=== PATIENT | female | born 1980 | race Caucasian/White ===

== ENCOUNTER 2024-08-25 13:35 | Outpatient (AMB) | payer OTHER, SELFPAY ==
--- NOTE | 2024-08-25 13:40 | A.OFFVIS_ITS ---
Vital Signs 08/25/24 13:46 Height 5 ft 6.5 in Weight 140 lb 8 oz BMI 22.3 BP 121/74 Blood Pressure Location Lt brachial Position Sitting Pulse 71 Pulse Source Pulse Oximeter Intake Visit Reasons: Scoliosis unspecified Intake Note: Pain today 02/04 Residential Real Estate Assistant Required: No Accompanied by: Spouse Allergies amphetamine [From Adderall] Allergy (Unknown, Verified 08/25/24 13:46) Rash dextroamphetamine [From Adderall] Allergy (Unknown, Verified 08/25/24 13:46) Rash Medication List - Last Reconciled 08/25/24 by MARY BETH Chávez albuterol sulfate 90 mcg/actuation inhalation bupropion HCl XL mg PO DAILY cyclobenzaprine 5 mg PO BEDTIME ferrous gluconate 324 mg PO DAILY ibuprofen 600 mg PO TID multivitamin 1 tab PO DAILY HPI HPI Scoliosis unspecified: Details: Patient is a pleasant 44 years old female with history of thoracolumbar fusion with rods for scoliosis (1993), chronic neck and low back pain, migraine headaches, lumbar arthritis, chronic fatigue, ADD, depression and insomnia, presents today for initial evaluation for chronic neck pain and back pain with left sided radiculopathy. Denies any recent trauma, injury or falls. Reports chronic pain for many years which has been resistant more recently to regular massage therapy, PT, chiropractic adjustments, epidural steroid injections, topical applications, heat, muscle relaxants and NSAIDs with continued symptoms. Most recent PT was completed in September 2023 with minimal improvement in functio alex and pain reduction. Most recent spine imaging were completed prior to 2011 in [place] and back surgery for scoliosis at age 13 in [place], [place]. Back pain is axial and also radiates to left lower extremity, predominately in L5 distribution with associated numbness and tingling, burning and aching sensations. She also experiences bilateral hip pain with prolonged standing or walking. Pain affects her daily activities, functioning, mobility, sleeping, social life, traveling and quality of life. Denies any fever or chills, abdominal or groin pain, weakness, foot drop, bladder or bowel dysfunction or saddle anesthesia. She sees Mental Therapist, Eleni Pritchett. Oswestry Low Back Disability Index Score=24 (moderate disability) Location: Upper back radiates down to left leg, neck pain Duration: Chronic pain for many years Characteristics of symptom or complaint: Aching, throbbing, shooting, sharp, pinching, tingling, tight, radiating Aggravating or associated factors: Prolonged sitting or standing, walking, movements, ROM, ADLs, cold Relieving factors: Ibuprofen, flexiril, heat therapy, rest, activity modifications Treatment: PT September 2023, back surgery age 13, lumbar JOSSY 2005, massage, chiropractic [facility] Medical History (Updated 08/25/24 @ 14:22 by MARY BETH Chávez) Neck pain Attention and concentration deficit Depressive disorder Recurrent major depression Insomnia Idiopathic scoliosis and kyphoscoliosis Acne Migraine with aura Major depression, single episode Surgical History (Updated 08/25/24 @ 14:16 by MARY BETH Chávez) History of spinal fusion for scoliosis Social History Alcohol intake: current Alcohol intake frequency: a few times a week Patient Tobacco Use Status: Never used Tobacco Current occupational status: employed Current occupation: Team [employer] Review of Systems Const All systems reviewed & are unremarkable except as noted in HPI and below Physical Exam General: Appears afebrile. Alert and oriented. Mood and affect appropriate. Follows and participates in conversation appropriately. Respiratory effort is unlabored. No cough. Able to transition from sit to stand unassisted. Ambulates with bilaterally normal heel strike and toe off. General: Yes no CVA tenderness Back/Spine/Pelvis Other: Patient is able to walk and stand on heels and tip toes with no difficulties demonstrating good motor tone. No limping. Can flex forward to 75-80 degrees and limited extension due to rods in her spine, with moderate pain with flexion and extension. Demonstrates 5/5 strength of quadriceps bilaterally as well as flexion/dorsiflexion of bilateral feet against resistance. 2+ pedal pulses bilaterally. Straight leg rise with dorsiflexion is diffuse positive on the left, negative on the right. +2 patellar and achilles reflexes bilaterally. Facet loading test positive bilaterally. Eladio sign, Brent?s, and Stinchfield tests are negative bilaterally. No groin pain with I/E hip rotations. Valsalva maneuver is negative. Back: no CVA tenderness Cervical Spine: cervical ROM normal, cervical muscular tenderness, pain with cervical ROM, No Cervical spine scars present, No cervical spasm, No Cervical spine tenderness and No step off deformity Thoracic/Lumbar Spine: thoracic and lumbar spine normal to inspection, Thoracic/lumbar spine scar(s), kyphosis, Lasegue's sign positive on the left and diffuse, pain with thoraco-lumbar ROM, paraspinal muscle tenderness, thoraco- lumbar ROM limited, Thoracic/lumbar scoliosis, No thoracic spinal tenderness and lumbar spinal tenderness (L4-S1) Pelvis: no buttock tenderness Sacroiliac joints: bilaterally nontender Extrem General: Yes capillary refill normal, Yes no clubbing, cyanosis or edema and Yes no calf tenderness Assessment & Plan Assessment & Plan (1) Idiopathic scoliosis and kyphoscoliosis: Code(s): M41.20 - Other idiopathic scoliosis, site unspecified Category: Medical (2) Lumbar degenerative disc disease: Code(s): M51.369 - Other intervertebral disc degeneration, lumbar region without mention of lumbar back pain or lower extremity pain Category: Medical (3) Chronic low back pain: Code(s): M54.50 - Low back pain, unspecified; G89.29 - Other chronic pain Category: Medical (4) Lumbar radiculopathy: Code(s): M54.16 - Radiculopathy, lumbar region Category: Medical (5) Neck pain: Code(s): M54.2 - Cervicalgia Category: Medical (6) Idiopathic scoliosis and kyphoscoliosis: Code(s): M41.20 - Other idiopathic scoliosis, site unspecified Category: Medical (7) Chronic low back pain: Code(s): M54.50 - Low back pain, unspecified; G89.29 - Other chronic pain Category: Medical (8) History of spinal fusion for scoliosis: Code(s): Z98.1 - Arthrodesis status; Z87.39 - Personal history of other diseases of the musculoskeletal system and connective tissue Category: Surgical (9) Muscle spasm: Code(s): M62.838 - Other muscle spasm Category: Medical Plan Discussed interventional and medical treatments for chronic neck and low back with prior surgery for scoliosis, with left sided radiculopathy, including neuromodulation Sprint PNS trial, SCS trial and implant, RFA procedures, diagno stic vs therapeutic injections. We will proceed with obtaining spine imaging to assess degree of degenerative changes, any subluxation, listhesis, compression fractures or pars defects and lumbar MRI to assess for neural integrity and compression and hardware status. Back pain has been functioning limiting and resistant to conservative treatment. Patient will return to the clinic to discuss results of the MRI findings when it is done and consider interventional therapy as indicated. Scripts provided for lidocaine patches and methocarbamol. Patient will hold flexeril. Side effects and precautions were discussed with patient. All questions and concerns have been answered and patient agreed with the treatment plan. Follow up for xray/MRI results and sooner as needed. Orders: Orders XR lumbar spine 4V min Today G89.29 - Other chronic pain, M41.20 - Other idiopathic scoliosis, site unspecified, M54.50 - Low back pain, unspecified, Z87.39 - Personal history of other diseases of the musculoskeletal system and connective tissue, Z98.1 - Arthrodesis status XR thoracic spine 2V Today G89.29 - Other chronic pain, M41.20 - Other idiopathic scoliosis, site unspecified, M54.50 - Low back pain, unspecified, Z87.39 - Personal history of other diseases of the musculoskeletal system and connective tissue, Z98.1 - Arthrodesis status MR lumbar spine wo con Today G89.29 - Other chronic pain, M41.20 - Other idiopathic scoliosis, site unspecified, M51.369 - Other intervertebral disc degeneration, lumbar region without mention of lumbar back pain or lower extremity pain, M54.16 - Radiculopathy, lumbar region, M54.50 - Low back pain, unspecified XR cervical spine 4V Today M54.2 - Cervicalgia Medications: New lidocaine 5% leave on most painful area for up to 12 hrs topically daily; 30 days 30 ea 2RF pain G89.29 - Other chronic pain, M51.369 - Other intervertebral disc degeneration, lumbar region without mention of lumbar back pain or lower extremity pain, M54.50 - Low back pain, unspecified methocarbamol 750 mg PO BEDTIME 30 days PRN 30 tabs 0RF muscle spasms G89.29 - Other chronic pain, M51.369 - Other intervertebral disc degeneration, lumbar region without mention of lumbar back pain or lower extremity pain, M54.50 - Low back pain, unspecified, M62.838 - Other muscle spasm Coding Level of Care Code New Pt Level 4 (01406) Diagnoses Idiopathic scoliosis and kyphoscoliosis M41.20 Lumbar degenerative disc disease M51.369 Chronic low back pain M54.50; G89.29 Lumbar radiculopathy M54.16 Neck pain M54.2 History of spinal fusion for scoliosis Z98.1; Z87.39 Muscle spasm M62.838
[2024-08-25 13:46] VITALS: BP 121/74; PULSE 71; BMI 22.3
== END 2024-08-25 14:24 | disposition home or self-care (01) ==
PROVIDERS: PCP Family Medicine; Referring Provider Family Medicine; Visit Provider Nurse Practitioner Family
DX: M41.20 Other idiopathic scoliosis, site unspecified (principal); M51.369 Other intervertebral disc degeneration, lumbar region without mention of lumbar back pain or lower extremity pain; M54.50 Low back pain, unspecified; G89.29 Other chronic pain; M54.16 Radiculopathy, lumbar region; M54.2 Cervicalgia; Z98.1 Arthrodesis status; Z87.39 Personal history of other diseases of the musculoskeletal system and connective tissue; M62.838 Other muscle spasm
CPT/HCPCS: 99204

== ENCOUNTER 2024-08-25 13:35 | Outpatient (REF) | payer OTHER, SELFPAY ==
--- NOTE | ~2024-08-25 | XR_ITS ---
CLINICAL HISTORY: M41.20 - Other idiopathic scoliosis, site unspecified 4 views thoracic spine Comparison: None Findings: Normal alignment. Spinal stabilization hardware is present. No acute fractures or dislocation. No significant degenerative change. IMPRESSION: No acute findings. This document has been electronically signed by: Roberto White MD on 08/26/2024 16:30:14
--- NOTE | ~2024-08-25 | XR_ITS ---
CLINICAL HISTORY: M54.50 - Low back pain, unspecified 6 views lumbar spine Comparison: None Findings: Thoracolumbar spinal stabilization hardware is present. Loss of normal lumbar lordosis. No acute fractures or dislocation. Multilevel disc space narrowing and endplate osteophyte formation, as well as facet hypertrophy. IMPRESSION: No acute findings. This document has been electronically signed by: Roberto White MD on 08/26/2024 16:32:16
--- NOTE | ~2024-08-25 | XR_ITS ---
CLINICAL HISTORY: M54.2 - Cervicalgia 5 views cervical spine Comparison: None Findings: Normal alignment. No acute fractures or dislocation. Disc space narrowing and endplate osteophyte formation at C5-C6, indicating degenerative disc disease. No prevertebral soft tissue swelling. IMPRESSION: 1. No acute findings. 2. Degenerative disc disease at C5-C6. This document has been electronically signed by: Roberto White MD on 08/26/2024 16:30:01
== END 2024-08-25 13:36 | disposition home or self-care (01) ==
LOC: HO.XRAY 13:35
PROVIDERS: PCP Family Medicine; Referring Provider Family Medicine; Visit Provider Nurse Practitioner Family
DX: G89.29 Other chronic pain (principal); M54.50 Low back pain, unspecified; M41.20 Other idiopathic scoliosis, site unspecified; Z98.1 Arthrodesis status; Z87.39 Personal history of other diseases of the musculoskeletal system and connective tissue; M54.2 Cervicalgia
CPT/HCPCS: 72050; 72070; 72110

== ENCOUNTER → 2024-08-25 14:32 | Outpatient (BNV) | payer OTHER, SELFPAY | PROVIDERS: PCP Family Medicine; Referring Provider Family Medicine; Visit Provider Radiology Diagnostic Radiology | DX: M50.322 Other cervical disc degeneration at C5-C6 level (principal); M54.50 Low back pain, unspecified; M41.20 Other idiopathic scoliosis, site unspecified | CPT/HCPCS: 72050; 72070; 72110 ==

== ENCOUNTER 2024-09-23 09:52 | Outpatient (REF) | payer OTHER, SELFPAY ==
--- NOTE | ~2024-09-23 | MR_ITS ---
EXAMINATION: MR LUMBAR SPINE WITHOUT CONTRAST CLINICAL INFORMATION: Idiopathic scoliosis. COMPARISON: Correlated to x-ray dated August 17, 2024. TECHNIQUE: MRI of the lumbar spine was obtained using routine sequences without contrast. FINDINGS: Limited examination due to paramagnetic field distortion secondary to the metallic hardware in the posterior elements of the thoracolumbar spine. Last rib-bearing vertebra labeled T12. The conus medullaris ends at pedicle of T12 with normal signal. The neural elements of the filum terminalis cauda equina demonstrated no grouping or clumping or empty thecal sac sign. There is a grade 1 retrolisthesis L4-5. There is no bone marrow STIR signal abnormality. T12-L1: No gross central spinal canal stenosis or neuroforamina stenosis. L1-2: No gross central spinal canal or neuroforamina stenosis. L2-3: Broad-based disc bulging. No gross neuroforamina stenosis. Limited evaluation. L3-4: Broad-based disc bulging. Limited evaluation due to postsurgical changes. No gross neuroforamina stenosis. L4-5: Broad-based disc bulging and facet joint hypertrophy. Bilateral neuroforamina stenosis left greater than the right likely encroaching posterior compressing the exiting nerve roots. L5-S1: Broad-based disc bulging. Central spinal canal stenosis and bilateral neuroforamina narrowing likely encroaching the neural elements. No gross prevertebral compartment hematoma mass or fluid collection. Fatty atrophy of the lower lumbar muscles.. MR/MR lumbar spine wo con IMPRESSION: Limited examination secondary to metallic hardware, nevertheless there is spondylosis resulting in grade 1 retrolisthesis L4-5 likely compressing the exiting nerve roots. Spondylosis at L5-S1 likely encroaching the neural elements. No tethered cord. Electronically signed by: Rory Anand MD 09/23/2024 11:24 AM EST
== END 2024-09-23 09:53 | disposition home or self-care (01) ==
LOC: HO.MRI 09:52
PROVIDERS: PCP Family Medicine; Visit Provider Nurse Practitioner Family
DX: M41.20 Other idiopathic scoliosis, site unspecified (principal); M51.369 Other intervertebral disc degeneration, lumbar region without mention of lumbar back pain or lower extremity pain; M54.50 Low back pain, unspecified; G89.29 Other chronic pain; M54.16 Radiculopathy, lumbar region
CPT/HCPCS: 72148

== ENCOUNTER → 2024-09-23 09:59 | Outpatient (BNV) | payer OTHER, SELFPAY | PROVIDERS: PCP Family Medicine; Visit Provider Radiology Diagnostic Radiology | DX: M47.817 Spondylosis without myelopathy or radiculopathy, lumbosacral region (principal) | CPT/HCPCS: 72148 ==

== ENCOUNTER 2024-10-13 08:36 | Outpatient (AMB) | payer OTHER, SELFPAY ==
--- NOTE | 2024-10-13 08:38 | A.OFFVIS_ITS ---
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 She has a history of lumbar scoliosis corrected via spinal fusion, resulting in chronic pain affecting daily activities. Pain primarily affects the lower lumbar spine, with radiations variably impacting the left leg. The patient experiences occasional neck pain and tightness due to cervical degenerative disc disease at C5-C6, reported significant discomfort while engaging in activities requiring prolonged sitting or bending. Radiographic evaluations highlighted multilevel disc narrowing with signs of arthritis and bone spurs in the lumbar spine, as well as cervical and thoracic spine. Denies any recent cough, cold, infection, fever or any significant changes in medical history since last office visit. Back and neck pain is function limiting and has been resistant to conservative treatments. - Onset and Timing: Chronic, following spinal fusion surgery for scoliosis - Quality and Character: Lower back pain with occasional neck pain presenting as tight knots - Primary Location: Lumbar spine - Radiation: Occasionally to the back of the left leg - Exacerbating Factors: Bending, prolonged sitting, standing, performing buttermaker - Relieving Factors: NSAIDs (albeit with stomach discomfort), some relief with physical therapy - Interference with Activities: Affects daily functions such as cleaning, staying active, and prolonged sitting/standing - Affect: Pain interrupts daily activities, impacts lifestyle and disrupts sleep - Analgesia: NSAIDs for pain, but cause stomach discomfort; limited relief from methocarbamol and cyclobenzaprine - Adverse Effects: Stomach discomfort from NSAIDs, drowsiness from cyclobenzaprine - Activities of Daily Living: Difficulty with household activities, standing, and sitting for long periods - Aberrant Drug Related Behaviors: None reported PRIOR: Patient is a pleasant 44 years old female with history of thoracolumbar fusion with rods for scoliosis (1993), chronic neck and low back pain, migraine headaches, lumbar arthritis, chronic fatigue, ADD, depression and insomnia, presents today for initial evaluation for chronic neck pain and back pain with left sided radiculopathy. Denies any recent trauma, injury or falls. Reports chronic pain for many years which has been resistant more recently to regular massage therapy, PT, chiropractic adjustments, epidural steroid injections, topical applications, heat, muscle relaxants and NSAIDs with continued symptoms. Most recent PT was completed in September 2023 with minimal improvement in functioning and pain reduction. Most recent spine imaging were completed prior to 2011 in [place] and back surgery for scoliosis at age 13 in [place], [place]. Back pain is axial and also radiates to left lower extremity, predominately in L5 distribution with associated numbness and tingling, burning and aching sensations. She also experiences bilateral hip pain with prolonged standing or walking. Pain affects her daily activities, functioning, mobility, sleeping, social life, traveling and quality of life. Denies any fever or chills, abdominal or groin pain, weakness, foot drop, bladder or bowel dysfunction or saddle anesthesia. She sees Mental Therapist, Eleni Pritchett. Oswestry Low Back Disability Index Score=24 (moderate disability) Location: Upper back radiates down to left leg, neck pain Duration: Chronic pain for many years Characteristics of symptom or complaint: Aching, throbbing, shooting, sharp, pinching, tingling, tight, radiating Aggravating or associated factors: Prolonged sitting or standing, walking, movements, ROM, ADLs, cold Relieving factors: Ibuprofen, flexiril, heat therapy, rest, activity modifications Treatment: PT September 2023, back surgery age 13, lumbar JOSSY 2005, massage, chiropractic [facility] Medical History Neck pain Attention and concentration deficit Depressive disorder Recurrent major depression Insomnia Idiopathic scoliosis and kyphoscoliosis Acne Migraine with aura Major depression, single episode Surgical History History of spinal fusion for scoliosis Social History Alcohol intake: current Alcohol intake frequency: a few times a week Patient Tobacco Use Status: Never used Tobacco Current occupational status: employed Current occupation: Team [employer] Review of Systems Const All systems reviewed & are unremarkable except as noted in HPI and below Physical Exam Vital Signs: Last Vital Signs Pulse 91 10/13/24 08:41 BP 118/66 10/13/24 08:41 Pulse Ox 99 10/13/24 08:41 Oxygen Delivery Method Room Air 10/13/24 08:41 BMI result Body Mass Index 22.5 General: Appears afebrile. Alert and oriented. Mood and affect appropriate. Follows and participates in conversation appropriately. Respiratory effort is unlabored. No cough. Able to transition from sit to stand unassisted. Ambulates with bilaterally normal heel strike and toe off. Neck Neck: Yes no lymphadenopathy, Yes supple, No anterior neck swelling, Yes no JVD, No prominent supraclavicular fat pad and No prominent dorsocervical fat pad General: Yes no CVA tenderness Back/Spine/Pelvis Other: Patient is able to walk and stand on heels and tip toes with no difficulties demonstrating good motor tone. No limping. Can flex forward to 75-80 degrees and limited extension due to rods in her spine, with moderate pain with flexion and extension. Demonstrates 5/5 strength of quadriceps bilaterally as well as flexion/dorsiflexion of bilateral feet against resistance. 2+ pedal pulses bilaterally. Straight leg rise with dorsiflexion is diffuse positive on the left, negative on the right. +2 patellar and achilles reflexes bilaterally. Facet loading test positive bilaterally. Eladio sign, Rbent?s, and Stinchfield tests are negative bilaterally. No groin pain with I/E hip rotations. Valsalva maneuver is negative. Back: no CVA tenderness Cervical Spine: cervical ROM normal, cervical muscular tenderness, pain with cervical ROM, No Cervical spine scars present, No cervical spasm and No Cervical spine tenderness Thoracic/Lumbar Spine: thoracic and lumbar spine normal to inspection, Thoracic/lumbar spine scar(s), kyphosis, Lasegue's sign positive on the left (L5-S1 distribution) and diffuse, pain with thoraco-lumbar ROM, paraspinal muscle tenderness, thoraco-lumbar ROM limited, Thoracic/lumbar scoliosis, thoraco-lumbar spasm, No thoracic spinal tenderness and lumbar spinal tenderness (L4-S1) Pelvis: buttock tenderness on the left Sacroiliac joints: bilaterally (left>right) tender to palpation Extrem General: Yes capillary refill normal, Yes no clubbing, cyanosis or edema and Yes no calf tenderness Results Reviewed Results Reviewed: MR LUMBAR SPINE WITHOUT CONTRAST 09/23/24 CLINICAL INFORMATION: Idiopathic scoliosis. COMPARISON: Correlated to x-ray dated August 17, 2024. FINDINGS: Limited examination due to paramagnetic field distortion secondary to the metallic hardware in the posterior elements of the thoracolumbar spine. Last rib-bearing vertebra labeled T12. The conus medullaris ends at pedicle of T12 with normal signal. The neural elements of the filum terminalis cauda equina demonstrated no grouping or clumping or empty thecal sac sign. There is a grade 1 retrolisthesis L4-5. There is no bone marrow STIR signal abnormality. T12-L1: No gross central spinal canal stenosis or neuroforamina stenosis. L1-2: No gross central spinal canal or neuroforamina stenosis. L2-3: Broad-based disc bulging. No gross neuroforamina stenosis. Limited evaluation. L3-4: Broad-based disc bulging. Limited evaluation due to postsurgical changes. No gross neuroforamina stenosis. L4-5: Broad-based disc bulging and facet joint hypertrophy. Bilateral neuroforamina stenosis left greater than the right likely encroaching posterior compressing the exiting nerve roots. L5-S1: Broad-based disc bulging. Central spinal canal stenosis and bilateral neuroforamina narrowing likely encroaching the neural elements. No gross prevertebral compartment hematoma mass or fluid collection. Fatty atrophy of the lower lumbar muscles.. IMPRESSION: Limited examination secondary to metallic hardware, nevertheless there is spondylosis resulting in grade 1 retrolisthesis L4-5 likely compressing the exiting nerve roots. Spondylosis at L5-S1 likely encroaching the neural elements. No tethered cord. 6 views lumbar spine 08/26/24 Comparison: None Findings: Thoracolumbar spinal stabilization hardware is present. Loss of normal lumbar lordosis. No acute fractures or dislocation. Multilevel disc space narrowing and endplate osteophyte formation, as well as facet hypertrophy. IMPRESSION: No acute findings. 4 views thoracic spine 08/26/24 Comparison: None Findings: Normal alignment. Spinal stabilization hardware is present. No acute fractures or dislocation. No significant degenerative change. IMPRESSION: No acute findings. 5 views cervical spine 08/26/24 Comparison: None Findings: Normal alignment. No acute fractures or dislocation. Disc space narrowing and endplate osteophyte formation at C5-C6, indicating degenerative disc disease. No prevertebral soft tissue swelling. IMPRESSION: 1. No acute findings. 2. Degenerative disc disease at C5-C6. Assessment & Plan Assessment & Plan (1) Idiopathic scoliosis and kyphoscoliosis: Code(s): M41.20 - Other idiopathic scoliosis, site unspecified Category: Medical (2) Lumbar degenerative disc disease: Code(s): M51.369 - Other intervertebral disc degeneration, lumbar region without mention of lumbar back pain or lower extremity pain Category: Medical (3) Chronic low back pain: Code(s): M54.50 - Low back pain, unspecified; G89.29 - Other chronic pain Category: Medical (4) Lumbar radiculopathy: Code(s): M54.16 - Radiculopathy, lumbar region Category: Medical (5) Idiopathic scoliosis and kyphoscoliosis: Code(s): M41.20 - Other idiopathic scoliosis, site unspecified Category: Medical (6) Chronic low back pain: Code(s): M54.50 - Low back pain, unspecified; G89.29 - Other chronic pain Category: Medical (7) History of spinal fusion for scoliosis: Code(s): Z98.1 - Arthrodesis status; Z87.39 - Personal history of other diseases of the musculoskeletal system and connective tissue Category: Surgical (8) Muscle spasm: Code(s): M62.838 - Other muscle spasm Category: Medical (9) Cervical spondylosis: Code(s): M47.812 - Spondylosis without myelopathy or radiculopathy, cervical region Category: Medical Plan During this visit, we evaluated the patient's lumbar, thoracic and cervical spine imaging results revealing stable post-surgical hardware and central spinal canal stenosis and bilateral neuroforamina narrowing and spondylosis, notably at lower lumbar spine, consistent with patient's symptoms and exam. We discussed continuing physical therapy and a trial of Caudal with catheter JOSSY injection to manage the nerve compression impacting her left leg and lumbar DDD. Options for injection sedation were addressed given patient comfort concerns, and alternative pain management tactics were deliberated due to adverse effects from current NSAID usage. Patient will notify our office on her decision regarding Caudal JOSSY. For neck degeneration, regular exercise, massage and heat therapy and maintaining home exercise regimen remain critical strategies in her care plan. Future follow-ups will determine additional interventions such as spinal cord stimulation or ITDD trials but would require exam under fluoroscopy to confirm access. Previously discussed Sprint PNS trial and RFA procedures for neck pain. All questions and concerns have been answered and patient agreed with the treatment plan. Follow up for as needed. Patient was informed and verbally consented to the use of an ambient scribe for clinic note documentation during this visit. Patient Instructions: - Continue physical therapy and HEP to facilitate lumbar and cervical spine health. - Consider epidural steroid injections via a caudal approach; consult further before initiating. - Use NSAIDs cautiously to balance relief of pain with potential stomach side effects. - Explore [id number] lidocaine or Salonpas patches for pain management. - Consider trying turmeric and francisca supplements, magnesium, zinc, and ALA for their anti-inflammatory properties. - Maintain hydration and regular exercise specifically focusing on back health. Consider massage or acupuncture therapies. - Follow up as planned to reassess pain management effectiveness and adjust strategies as required. Coding Level of Care Code Est Pt Level 4 (57023) Diagnoses Idiopathic scoliosis and kyphoscoliosis M41.20 Lumbar degenerative disc disease M51.369 Chronic low back pain M54.50; G89.29 Lumbar radiculopathy M54.16 History of spinal fusion for scoliosis Z98.1; Z87.39 Muscle spasm M62.838 Cervical spondylosis M47.812
[2024-10-13 08:41] VITALS: BP 118/66; PULSE 91; O2SAT 99; BMI 22.5
== END 2024-10-13 09:05 | disposition home or self-care (01) ==
LOC: HO.PMC 08:37
PROVIDERS: PCP Family Medicine; Visit Provider Nurse Practitioner Family
DX: M41.20 Other idiopathic scoliosis, site unspecified (principal); M51.369 Other intervertebral disc degeneration, lumbar region without mention of lumbar back pain or lower extremity pain; M54.50 Low back pain, unspecified; G89.29 Other chronic pain; M54.16 Radiculopathy, lumbar region; Z98.1 Arthrodesis status; Z87.39 Personal history of other diseases of the musculoskeletal system and connective tissue; M62.838 Other muscle spasm; M47.812 Spondylosis without myelopathy or radiculopathy, cervical region
CPT/HCPCS: 99214

== ENCOUNTER → 2024-10-13 08:36 | Outpatient (BNVA) | payer OTHER, SELFPAY | PROVIDERS: PCP Family Medicine; Visit Provider Nurse Practitioner Family ==